=== PATIENT | male | born 1995 | race Caucasian/White ===

== ENCOUNTER 2020-05-25 15:12 | Outpatient (CLI) | payer SELFPAY ==
--- NOTE | 2020-05-25 15:45 | CT_ITS ---
WS: [id number] CT PARANASAL SINUSES HISTORY: LOSS OF SMELL TECHNIQUE: Contiguous 2.5 mm axial images obtained through the sinuses. Images are reconstructed in s agittal and coronal planes. All CT scans at [facility] use at least one of these dose opt imization techniques: automated exposure control; mA and/or kV adjustment per patient size (includes targeted exams where dose is matched to clinical indication); or iterative reconstruction. DLP: 315.73 mGycm COMPARISON: None available. Frontal sinuses: Normal. Sphenoid sinus: Normal. Ethmoid sinuses: Normal. Maxillary sinus: Normal. Ostiomeatal unit: Very small amount of soft tissue thickening at the RIGHT ostiomeatal unit. Normal a ppearance of the jazmyne demetrio. Very slight deviation of nasal septum to the RIGHT without a spur. Mild ectopia the cerebellar tonsil s. CT/CT sinus wo con* [id number] IMPRESSION: 1. No significant paranasal sinus disease.
== END 2020-05-25 15:13 | disposition home or self-care (01) ==
PROVIDERS: Visit Provider Otolaryngology
DX: R43.0 Anosmia (principal)
CPT/HCPCS: 70486